=== PATIENT | male | born 1955 | race Caucasian/White ===

== ENCOUNTER → 2024-07-01 13:51 | Outpatient (BNVA) | payer OTHER, SELFPAY | PROVIDERS: Visit Provider Physician Assistant Medical | DX: T25.222A Burn of second degree of left foot, initial encounter (principal); X12.XXXA Contact with other hot fluids, initial encounter | CPT/HCPCS: 16020; 99204 ==

== ENCOUNTER → 2024-07-04 09:50 | Outpatient (BNVA) | payer OTHER, SELFPAY | PROVIDERS: Visit Provider Physician Assistant Medical | DX: T25.222A Burn of second degree of left foot, initial encounter (principal); X12.XXXA Contact with other hot fluids, initial encounter | CPT/HCPCS: 99213 ==

== ENCOUNTER → 2024-07-08 12:57 | Outpatient (BNVA) | payer OTHER, SELFPAY | PROVIDERS: Visit Provider Physician Assistant Medical | DX: T25.222A Burn of second degree of left foot, initial encounter (principal); X12.XXXA Contact with other hot fluids, initial encounter; Z02.79 Encounter for issue of other medical certificate | CPT/HCPCS: 99213 ==

== ENCOUNTER → 2024-07-11 15:16 | Outpatient (BNVA) | payer OTHER, SELFPAY | PROVIDERS: Visit Provider Physician Assistant Medical | DX: T25.222A Burn of second degree of left foot, initial encounter (principal); X12.XXXA Contact with other hot fluids, initial encounter; Z02.79 Encounter for issue of other medical certificate | CPT/HCPCS: 99213 ==

== ENCOUNTER → 2024-07-18 11:12 | Outpatient (BNVA) | payer OTHER, SELFPAY | PROVIDERS: Visit Provider Physician Assistant Medical | DX: T25.222A Burn of second degree of left foot, initial encounter (principal); X12.XXXA Contact with other hot fluids, initial encounter; Z02.79 Encounter for issue of other medical certificate | CPT/HCPCS: 99213 ==